=== PATIENT | female | born 1975 | race Caucasian/White ===

== ENCOUNTER 2021-08-25 16:52 | Inpatient (IN) | payer MEDICAID ==
[~2021-08-25] VITALS: Ht 177.8 cm; Wt 97.1 kg
[2021-08-25] MEDS ORDERED: LEVO125 PO (20:07)
[2021-08-25] MEDS ORDERED: BUPR-93 PO (21:45)
[2021-08-25] MEDS ORDERED: ZOLPIDEM TARTRATE 10 MG TABLET PO PRN (22:00)
[2021-08-25] MEDS ORDERED: HALOPERIDOL 5 MG TABLET PO PRN (22:00)
[2021-08-25] MEDS ORDERED: INFLUENZA VIRUS VACCINE QVS 2021-22 (6MO+)/PF 60 MCG/0.5 ML SYRINGE IM. ONE (22:00)
[2021-08-26 00:05] VITALS: BP 136/92
[2021-08-26 08:23] LABS: BASOPHILS % (AUTO) 0.5 % (0.0-2.0); EOSINOPHILS % (AUTO) 1.7 % (1.0-6.0); HEMATOCRIT 39.9 % (36-46); HEMOGLOBIN 13.6 g/dL (12.0-16.0); LYMPHOCYTES # (AUTO) 1.4 K/uL (1.0-4.8); MEAN CORPUSCULAR HEMOGLOBIN 30.1 pg (26.0-34.0); MEAN CORPUSCULAR VOLUME 89 fL (80-100); MONOCYTES # (AUTO) 0.4 K/uL (0.1-1.0); MONOCYTES % (AUTO) 7.8 % (2.0-9.0); NEUTROPHILS # (AUTO) 3.2 K/uL (1.8-7.7); PLATELET COUNT (AUTO) 203 K/uL (150-450); RED BLOOD CELL COUNT(AUTO) 4.51 MIL/uL (4.00-5.20); RED CELL DISTRIBUTION WIDTH 13.1 % (11.5-14.5)
[2021-08-26 08:40] LABS: HEMOGLOBIN A1C 5.6 % (3.8-5.6)
[2021-08-26 08:46] LABS: ALANINE AMINOTRANSFERASE 24 U/L (12-78); ALBUMIN 4.1 g/dL (3.4-5.0); ALKALINE PHOSPHATASE 54 U/L (46-116); ANION GAP 7 mmol/L (8-16); ASPARTATE AMINOTRANSFERASE 16 U/L (15-37); BILIRUBIN,TOTAL 0.8 mg/dL (0.1-1.0); CALCIUM, TOTAL 9.8 mg/dL (8.8-10.5); CARBON DIOXIDE 30 mmol/L (22-29); CHLORIDE 104 mmol/L (98-107); CHOL/HDL RATIO 4.2 (3.9-5.7); CHOLESTEROL 208 mg/dL (131-200); FREE T4 (FREE THYROXINE) 1.55 ng/dL (0.76-1.46); GLOMERULAR FILTR. RATE CALC > 60 mL/min (>60); GLUCOSE,RANDOM 90 mg/dL (70-110); HDL CHOLESTEROL 49 mg/dL (40-60); LDL CHOL (CALC.) 138 mg/dL (0-130); POTASSIUM 4.2 mmol/L (3.5-5.1); SODIUM SERUM 141 mmol/L (136-145); THYROID STIMULATING HORMONE 0.06 uIU/mL (0.36-3.74); TRIGLYCERIDES 107 mg/dL (15-150); UREA NITROGEN, BLOOD 13 mg/dL (7-18)
[2021-08-26] MEDS: BuPROPion HCL XL 150 MG ER TABLET PO SCH (09:36)
[2021-08-26] MEDS ORDERED: NICOTINE 14 MG/24 HOUR PATCH TD PRN (09:45)
[2021-08-26] MEDS ORDERED: CloNIDine HCL 0.1 MG TABLET PO PRN (09:45)
[2021-08-26] MEDS ORDERED: LOPERAMIDE HCL 2 MG CAPSULE PO PRN (09:45)
[2021-08-26] MEDS ORDERED: PETROLATUM,WHITE 28 GM JELLY TP PRN (09:45)
[2021-08-26] MEDS ORDERED: DOCUSATE SODIUM 100 MG CAPSULE PO PRN (09:45)
[2021-08-26] MEDS ORDERED: ONDANSETRON HCL 4 MG TABLET PO PRN (09:45)
[2021-08-26] MEDS ORDERED: GuaiFENesin/D-METHORPHAN [SUGAR-FREE] 200-20MG/10 ML SYRUP UDCUP PO PRN (09:45)
[2021-08-26] MEDS ORDERED: MAGNESIUM HYDROXIDE SUSPENSION 30 ML UDCUP PO PRN (09:45)
[2021-08-26] MEDS ORDERED: MAG HYDROX/AL HYDROX/SIMETH ES 30 ML SUSPENSION UDCUP PO PRN (09:45)
[2021-08-26] MEDS ORDERED: IBUPROFEN 400 MG TABLET PO PRN (09:45)
[2021-08-26] MEDS ORDERED: ACETAMINOPHEN 325 MG TABLET PO PRN (09:45)
[2021-08-26] MEDS ORDERED: ALBUTEROL SULFATE HFA 90 MCG/PUFF 8 GM INHALER IH PRN (09:45)
[2021-08-26 13:12] VITALS: BP 118/76
[2021-08-26 16:05] VITALS: BP 115/62
[2021-08-27 00:42] VITALS: BP 119/71
[2021-08-27] MEDS ORDERED: LEVOTHYROXINE SODIUM 125 MCG TABLET PO SCH (06:30)
[2021-08-27] MEDS: LEVOTHYROXINE SODIUM 125 MCG TABLET PO SCH (06:41)
[2021-08-27] MEDS: BuPROPion HCL XL 150 MG ER TABLET PO SCH (07:33)
[2021-08-27 08:10] VITALS: BP 123/61
[2021-08-27 16:02] VITALS: BP 126/87
[2021-08-28] MEDS: LEVOTHYROXINE SODIUM 125 MCG TABLET PO SCH (07:00)
[2021-08-28 07:03] VITALS: BP 122/78
[2021-08-28] MEDS: BuPROPion HCL XL 150 MG ER TABLET PO SCH (07:39)
[2021-08-28] MEDS: LORazepam 2 MG TABLET PO PRN (10:25)
[2021-08-28 10:41] VITALS: BP 131/78
[2021-08-28 16:06] VITALS: BP 120/78
[2021-08-29 04:09] VITALS: BP 114/65
[2021-08-29] MEDS: LEVOTHYROXINE SODIUM 125 MCG TABLET PO SCH (06:29)
[2021-08-29] MEDS: BuPROPion HCL XL 150 MG ER TABLET PO SCH (08:24)
[2021-08-29] MEDS: LORazepam 2 MG TABLET PO PRN (08:24)
[2021-08-29 08:31] VITALS: BP 118/82
[2021-08-29] MEDS ORDERED: BUPR-93 PO (10:22)
[2021-08-29] MEDS ORDERED: BUPR-49 PO (15:40)
== END 2021-08-29 20:11 | disposition home or self-care (01) | DRG 751 ==
LOC: B3A 21:48
PROVIDERS: ADMIT Psychiatry & Neurology Psychiatry; ATTEND Psychiatry & Neurology Psychiatry
DX: F33.2 Major depressive disorder, recurrent severe without psychotic features (principal); E03.9 Hypothyroidism, unspecified; Z68.30 Body mass index [BMI] 30.0-30.9, adult; E66.3 Overweight; F10.10 Alcohol abuse, uncomplicated; K59.00 Constipation, unspecified; T43.212A Poisoning by selective serotonin and norepinephrine reuptake inhibitors, intentional self-harm, initial encounter; Y92.098 Other place in other non-institutional residence as the place of occurrence of the external cause; Z79.899 Other long term (current) drug therapy; Z91.51 Personal history of suicidal behavior
CPT/HCPCS: 80053; 80061; 83036; 84439; 84443; 85025